=== PATIENT | female | born 1980 | race Caucasian/White ===

== ENCOUNTER 2023-08-03 07:56 | Day surgery (SDC) | payer BC ==
[2023-07-27 14:06] VITALS: BMI 25.8
[2023-08-03 08:38] VITALS: TEMP 97.5
[2023-08-03] MEDS ORDERED: PROPOFOL 80 ML ONE (08:59)
[2023-08-03 09:26] VITALS: RESP 16
[2023-08-03 09:55] VITALS: BP 110/64; PULSE 68
== END 2023-08-03 09:50 | disposition home or self-care (01) ==
LOC: FASU-ENDO 07:56
PROVIDERS: ATTEND Internal Medicine Gastroenterology
PROC: 0DBN8ZX Excision of Sigmoid Colon, Via Natural or Artificial Opening Endoscopic, Diagnostic (ICD-10-PCS; principal; 2023-08-03 08:54)
DX: Z12.11 Encounter for screening for malignant neoplasm of colon (principal); K63.5 Polyp of colon; K64.1 Second degree hemorrhoids; K64.8 Other hemorrhoids; K57.30 Diverticulosis of large intestine without perforation or abscess without bleeding
CPT/HCPCS: 81025; 88305-TC